=== PATIENT | male | born 1950 | race African-American/Black ===

== ENCOUNTER 2016-10-21 12:27 | Emergency (ER) | payer MEDICARE, OTHER ==
[2016-10-21] MEDS ORDERED: cefTRIAXone\\ROCEPHIN 1 GM VIAL ONE (13:22)
[2016-10-21] MEDS ORDERED: Lidocaine 1% 20 ML MDV ONE (13:22)
--- NOTE | 2016-10-21 13:22 | RAD ---
TWO VIEWS OF THE CHEST: DATE: 10/21/16. COMPARISON: 12/24/12. HISTORY: Cough and chills. FINDINGS: There is a questionable area of asymmetric increased density in the right lung base inferiorly. The re may be a correlate on the lateral view overlying the cardiac silhouette. No pneumothorax is seen . No lobar consolidation. Lungs appear hyperinflated suggesting air trapping. IMPRESSION: There is a focal opacity overlying the right lung base with a possible correlate on the lateral exam suggesting a right middle lobe location. This could be an inflammatory/infectious process. Underl shae mass lesion is a possibility as well. Short-term followup imaging following treatment advised to document resolution. If this opacity in the right base does not resolve in a short time frame, a chest CT would be advised to exclude an underlying mass lesion. CODE T POS: JANIE
--- NOTE | 2016-10-21 14:11 | ERRECORD ---
[facility] EMERGENCY RECORD HPI COUGH (ThuOct 22, 2016 02:39 AGRE) CHIEF COMPLAINT: Patient presents for evaluation of cough, non-productive. HISTORIAN: History provided by patient, COUGH FOR 3 WEEKS AND GETTING WORST. NO SOB. PAIN IN RIGHT SIDE OF BACK AND UPPER HIP SINCE FALLING AT HOME 2 MONTHS AGO . DENIES RECENT INJURIES. NO FEVER BUT HAVING CHILLS. IS A SMOKER. NO SICK CONTACTS. NOCHEST PAIN OR HX OF CARDIAC DISEASE, PE, DVT. LOCATION: No localizing symptoms. QUALITY: Denies wheezing. SEVERITY: Maximum severity of symptoms moderate, Currently symptoms are moderate. TIME COURSE: Gradual onset of symptoms, Symptoms are worsening. ASSOCIATED WITH: No associated chest pain, Associated with chills, No associated diarrhea, No associated diaphoresis, No associated dyspnea on exertion, No associated fever. EXACERBATED BY: Patient's condition exacerbated by nothing. RELIEVED BY: Patient's condition relieved by nothing. ROS (ThuOct 22, 2016 02:41 AGRE) CONSTITUTIONAL: Historian denies chills, denies fever, denies weakness. EYES: Historian denies eye redness, denies vision changes. ENT: Historian denies sore throat, denies stridor. CARDIOVASCULAR: Historian denies chest pain, denies diaphoresis. RESPIRATORY: Historian reports cough, denies shortness of breath, denies sputum, denies stridor, denies wheezing. GI: Historian denies abdominal pain, denies nausea, denies vomiting. MUSCULOSKELETAL: Historian reports back pain, denies neck pain. SKIN: Historian denies skin changes, denies skin lesions. NEUROLOGIC: Historian denies confusion, denies dizziness, denies focal weakness, denies headache. HEMO/LYMPHATIC: Normal hematologic/lymphatic system review, Historian denies petechiae. PSYCHIATRIC: Negative psychiatric review of systems, Historian denies anxiety. PAST MEDICAL HISTORY (12:36 MSPE) MEDICAL HISTORY: No past medical history, Flu vaccine not up to date, Tetanus not up to date, Pneumococcal vaccine not up to date. MALE SURGICAL HISTORY: Patient has no surgical history. PSYCHIATRIC HISTORY: No previous psychiatric history. SOCIAL HISTORY: Patient denies alcohol use, Patient denies drug use, Patient currently uses tobacco, smokes cigarettes, Patient smokes 1/2 packs per day. KNOWN ALLERGIES &a-1R&a+25V*p+0X*x9418Q*c202B*c15G*c2P*p-0X&a-25V&a+1R Name: Bertin Bach : 1950 M66 MedRec: [id number] AcctNum: [id number] Prepared: ThuOct 22, 2016 02:51 by Interface Page 1 of 4 pMD [facility] EMERGENCY RECORD NKDA (Unconfirmed) No Known Drug Allergies CURRENT MEDICATIONS (12:34 MSPE) None VITAL SIGNS VITAL SIGNS: BP: 144/60, Pulse: 74, Resp: 18, Temp: 98.1 (Oral), Pain: 5-6, O2 sat: 97 on Room Air, Time: 10/21/2016 12:34. (12:34 MSPE) BP: 131/55, Pulse: 70, Resp: 18, O2 sat: 97 on Room Air, Time: 10/21/2016 13:15. (13:15 MSPE) BP: 144/55, Pulse: 75, Resp: 18, O2 sat: 98 on Room Air, Time: 10/21/2016 13:55. (13:55 MSPE) PHYSICAL EXAM (ThuOct 22, 2016 02:42 AGRE) CONSTITUTIONAL: Vital signs reviewed, Patient afebrile, Respiratory rate normal, Patient appears non toxic, Patient appears pain free, Patient alert and oriented to person, place and time, NURSES NOTES REVIEWED. HEAD: Head exam included findings of head atraumatic, normocephalic. EYES: Eye exam included findings of eyelids normal to inspection, Extraocular muscles intact, Conjunctiva normal, Sclera normal. ENT: Ear exam normal, Nose exam normal, Mouth exam normal. NECK: Neck exam normal, Neck exam included findings of normal range of motion, no meningeal signs, no cervical adenopathy. RESPIRATORY CHEST: Respiratory exam included findings of no respiratory distress, Rales present, to the right middle lobe, to the right lower lobe, No rhonchi, Breath sounds not diminished, Chest exam included findings of chest movement symmetrical, Tenderness, moderate, to the right posterior chest, no crepitus, TENDERNESS TO PALPATION OVER THE RIGHT LOWER RIB CAGE AND FLANK WITHOUT WHICH REPRODUCES HIS PAIN. NO DEFORMITY OR BRUISING. CARDIOVASCULAR: Cardiovascular exam included findings of heart rate regular rate and rhythm, Heart sounds normal, normal S1, normal S2, no murmurs, no rub, no gallop. ABDOMEN MALE: Abdominal exam normal, Abdominal exam included findings of abdomen nontender, Bowel sounds normal, Liver normal, Spleen normal, no distension, no mass. BACK: Back exam included findings of normal inspection, Range of motion, limited by pain, Tenderness, paraspinal to the right lower. UPPER EXTREMITY: Upper extremity exam included findings of inspection normal, Range of motion normal. LOWER EXTREMITY: Lower extremity exam included findings of inspection normal, Range of motion normal. NEURO: Neuro exam normal, Neuro exam findings include patient oriented to person, place and time, Speech normal, Gait normal, &a-1R&a+25V*p+0X*u9868Z*c202B*c15G*c2P*p-0X&a-25V&a+1R Name: Bertin Bach : 1950 M66 MedRec: [id number] AcctNum: [id number] Prepared: ThuOct 22, 2016 02:51 by Interface Page 2 of 4 D [facility] EMERGENCY RECORD Memory normal, Cranial nerves intact, no focal motor deficits. SKIN: Skin exam normal, Skin exam included findings of skin warm, dry, and normal in color, no rash. LYMPHATIC: Lymphatic exam normal, Lymphatic exam included findings of cervical nodes normal. PSYCHIATRIC: Psychiatric exam normal, Normal affect. RADIOLOGYINTERPRETATION (ThuOct 22, 2016 02:46 AGRE) MECHANIC SOUND TECHNICIAN: Preliminary review of x-rays by, Radiologist, IMPRESSION: There is a focal opacity overlying the right lung base with a possible correlate on the lateral exam suggesting a right middle lobe location. This could be an inflammatory/infectious process. Underl shae mass lesion is a possibility as well. Short-term followup imaging following treatment advised to document resolution. If this opacity in the right base does not resolve in a short time frame, a chest CT would be advised to exclude an underlying mass lesion. MEDICATION ADMINISTRATION SUMMARY Drug Name: Rocephin IM Convenience, Dose Ordered: 1 g, Route: Intramuscular, Status: Given, Time: 13:35 10/21/2016, Detailed record available in Medication Service section. DOCTOR NOTES (ThuOct 22, 2016 02:46 AGRE) TEXT: DISCUSSED WITH PATIENT FINDINGS ON EXAM, RESULTS OF XRAYS, MANAGEMENT OF HIS BACK PAIN, ANTIBIOTICS FOR PNEUMONIA, POSSIBLE LUNG MASS NEEDING FURTHER EVALUATION ONCE THE PNEUMONIA CLEARS, STOP SMOKING, CLOSE FOLLOW UP. HE EXPRESSED UNDERSTANDING AND AGREEMENT WITH THIS PLAN. PATIENT STATUS: Patient has improved since arrival to emergency department. PATIENT PLAN: The patient will be discharged. DATA REVIEWED: Xray data reviewed. PROBLEM LIST No recorded problems DIAGNOSIS (13:23 AGRE) FINAL: PRIMARY: Pneumonia. PRESCRIPTION doxycycline hyclate oral: TABLET : 100 mg : ORAL : Quantity: 1 Unit: tab(s) Route: ORAL Schedule: 2 times a day (before meals) Dispense: 20 May substitute. Refills: No Refills . (13:24 AGRE) NOTES: No Refills. (13:24 AGRE) Robitussin DAC: SYRUP : 30 mg-10 mg-100 mg/5 mL : ORAL : &a-1R&a+25V*p+0X*r9998B*c202B*c15G*c2P*p-0X&a-25V&a+1R Name: Bertin Bach : 1950 M66 MedRec: [id number] AcctNum: [id number] Prepared: ThuOct 22, 2016 02:51 by Interface Page 3 of 4 pMD [facility] EMERGENCY RECORD Quantity: 10 Unit: mL Route: ORAL Schedule: every 6 hours PRN Dispense: 120 Unit: mL May substitute. Refills: No Refills . (13:24 AGRE) NOTES: PRN COUGH No Refills. (13:24 AGRE) Robaxin oral: TABLET : 500 mg : ORAL : Quantity: 2 Unit: tab(s) Route: ORAL Schedule: every 6 hours PRN Dispense: 40 May substitute. Refills: No Refills . (13:29 AGRE) NOTES: PRN BACK MUSCLE SPASMS No Refills. (13:29 AGRE) DISPOSITION PATIENT: Disposition Type: Discharge, Disposition: *Discharge Home, Condition: Improved. (13:23 AGRE) Patient left the department. (13:59 MSPE) Oliveira: AGRE=MD Davies Andrea MSPE=ELIANA Dewey, Denisha &a-1R&a+25V*p+0X*w5415D*c202B*c15G*c2P*p-0X&a-25V&a+1R Name: Bertin Bach : 1950 M66 MedRec: [id number] AcctNum: [id number] Prepared: ThuOct 22, 2016 02:51 by Interface Page 4 of 4 pMD MTDD
--- NOTE | 2016-10-21 14:15 | PICIS ---
[facility] EMERGENCY RECORD TRIAGE (12:33 MSPE) TRIAGE NOTES: pain to back and side & rt hip; onset one month ago "bad cold". (12:33 MSPE) PATIENT: NAME: Bertin Bach, AGE: 66, GENDER: male, : Thu1950, TIME OF GREET: ThuOct 21, 2016 12:27, PREFERRED LANGUAGE: Nauruan, ETHNICITY: Not or , ECODE BILLING MAP: [facility], SSN: [id number], Zip Code: [address], KG WEIGHT: 56.70, PHONE: , , , PERSON ID: [id number], PCP: none. (12:33 MSPE) COMPLAINT: CONGESTION,RIGHT SIDE AND BACK PAIN. (12:33 MSPE) ADMISSION: URGENCY: 4 Non Urgent, ADMISSION SOURCE: Home, TRANSPORT: CAR, BED: ER -03. (12:33 MSPE) TRIAGE SCREENING: Patient denies suicidal ideation, Patient denies presence of domestic violence. 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 (12:36 MSPE) PROVIDERS: TRIAGE NURSE: Denisha Dewey RN. (12:33 MSPE) VITAL SIGNS: BP 144/60, Pulse 74, Resp 18, Temp 98.1, (Oral), Pain 5-6, O2 Sat 97, on Room Air, Time 10/21/2016 12:34. (12:34 MSPE) PREVIOUS VISIT ALLERGIES: NKDA. (12:33 MSPE) NKDA. (12:36 MSPE) KNOWN ALLERGIES NKDA (Unconfirmed) No Known Drug Allergies CURRENT MEDICATIONS (12:34 MSPE) None VITAL SIGNS VITAL SIGNS: BP: 144/60, Pulse: 74, Resp: 18, Temp: 98.1 (Oral), Pain: 5-6, O2 sat: 97 on Room Air, Time: 10/21/2016 12:34. (12:34 MSPE) BP: 131/55, Pulse: 70, Resp: 18, O2 sat: 97 on Room Air, Time: 10/21/2016 13:15. (13:15 MSPE) BP: 144/55, Pulse: 75, Resp: 18, O2 sat: 98 on Room Air, Time: 10/21/2016 13:55. (13:55 MSPE) NURSING ASSESSMENT: BACK (12:39 MSPE) PAIN: c/o pain to right lower back and right hip for past month. 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 BACK: Notes: no deformities noted to back. NURSING ASSESSMENT: RESPIRATORY /CHEST (12:37 MSPE) CONSTITUTIONAL: Patient arrives ambulatory, Gait steady, History obtained from patient, Patient appears comfortable, Patient cooperative, Patient alert, Oriented to person, place and time, Skin &a-1R&a+25V*p+0X*l7169V*c202B*c15G*c2P*p-0X&a-25V&a+1R Name: Bertin Bach : 1950 M66 MedRec: [id number] AcctNum: [id number] Prepared: ThuOct 22, 2016 02:57 by Interface Page [address] [facility] EMERGENCY RECORD warm, Skin dry. RESPIRATORY/CHEST: Associated with cough, productive of, yellow sputum, Associated with fever, subjective fever; hasn't checked at home, Notes: also reports having runny nose. NURSING PROCEDURE: DISCHARGE NOTE (13:59 MSPE) DISCHARGE: Patient discharged to home, ambulating without assistance, Summary of Care printed/ provided, Discharge instructions given to patient, Simple or moderate discharge teaching performed, Prescriptions given and instructions on side effects given, Above person(s) verbalized understanding of discharge instructions and follow-up care, Patient treated and evaluated by physician. BELONGINGS: Belongings remain with patient. NOTES: Notes: No adverse reaction noted to IM med. NURSING PROCEDURE: TRANSPORT TO TESTS (12:48 MSPE) TRANSPORT TO TESTS: Patient transported to x-ray, via wheelchair, Accompanied by x-ray cadd technician. ORDER DETAILS Order Name: XR Chest Pa & Lat STANDARD, Status: Active, Time: 12:38 10/21/2016, User: JOSE, - Ordered for: MD Samson, Ifeanyi, - Entered by: ELIANA Bran, Malgorzata Sandoval Oct 21, 2016 12:38, - Quantity: 1. MEDICATION ADMINISTRATION SUMMARY Drug Name: Rocephin IM Convenience, Dose Ordered: 1 g, Route: Intramuscular, Status: Given, Time: 13:35 10/21/2016, Detailed record available in Medication Service section. MEDICATION SERVICE (13:35 AGRE) Rocephin IM Convenience: Order: Rocephin IM Convenience (ceftriaxone sodium/lidocaine HCl) - Dose: 1 g : Intramuscular Ordered by: fIeanyi Davies MD Entered by: Ifeanyi Davies MD [facility] Oct 21, 2016 13:11 , Acknowledged by: Denisha Dewey RN Oct 21, 2016 13:21 Documented as given by: Denisha Dewey RN [facility] Oct 21, 2016 13:35 Patient, Medication, Dose, Route and Time verified prior to administration. IM antibiotic, Amount given: 1 gram, Medication administered to right thigh, Patient appears Awake and alert- acceptable, Correct patient, time, route, dose and medication confirmed prior to administration, Patient advised of actions and side-effects prior to administration, Allergies confirmed and medications reviewed prior to administration, Patient in position of comfort, Side rails up, Cart in lowest &a-1R&a+25V*p+0X*f6164T*c202B*c15G*c2P*p-0X&a-25V&a+1R Name: Bertin Bach : 1950 M66 MedRec: [id number] AcctNum: [id number] Prepared: ThuOct 22, 2016 02:57 by Interface Page [address] [facility] EMERGENCY RECORD position. HPI COUGH (ThuOct 22, 2016 02:39 AGRE) CHIEF COMPLAINT: Patient presents for evaluation of cough, non-productive. HISTORIAN: History provided by patient, COUGH FOR 3 WEEKS AND GETTING WORST. NO SOB. PAIN IN RIGHT SIDE OF BACK AND UPPER HIP SINCE FALLING AT HOME 2 MONTHS AGO . DENIES RECENT INJURIES. NO FEVER BUT HAVING CHILLS. IS A SMOKER. NO SICK CONTACTS. NOCHEST PAIN OR HX OF CARDIAC DISEASE, PE, DVT. LOCATION: No localizing symptoms. QUALITY: Denies wheezing. SEVERITY: Maximum severity of symptoms moderate, Currently symptoms are moderate. TIME COURSE: Gradual onset of symptoms, Symptoms are worsening. ASSOCIATED WITH: No associated chest pain, Associated with chills, No associated diarrhea, No associated diaphoresis, No associated dyspnea on exertion, No associated fever. EXACERBATED BY: Patient's condition exacerbated by nothing. RELIEVED BY: Patient's condition relieved by nothing. ROS (ThuOct 22, 2016 02:41 AGRE) CONSTITUTIONAL: Historian denies chills, denies fever, denies weakness. EYES: Historian denies eye redness, denies vision changes. ENT: Historian denies sore throat, denies stridor. CARDIOVASCULAR: Historian denies chest pain, denies diaphoresis. RESPIRATORY: Historian reports cough, denies shortness of breath, denies sputum, denies stridor, denies wheezing. GI: Historian denies abdominal pain, denies nausea, denies vomiting. MUSCULOSKELETAL: Historian reports back pain, denies neck pain. SKIN: Historian denies skin changes, denies skin lesions. NEUROLOGIC: Historian denies confusion, denies dizziness, denies focal weakness, denies headache. HEMO/LYMPHATIC: Normal hematologic/lymphatic system review, Historian denies petechiae. PSYCHIATRIC: Negative psychiatric review of systems, Historian denies anxiety. PAST MEDICAL HISTORY (12:36 MSPE) MEDICAL HISTORY: No past medical history, Flu vaccine not up to date, Tetanus not up to date, Pneumococcal vaccine not up to date. MALE SURGICAL HISTORY: Patient has no surgical history. PSYCHIATRIC HISTORY: No previous psychiatric history. SOCIAL HISTORY: Patient denies alcohol use, Patient denies drug use, Patient currently uses tobacco, smokes cigarettes, Patient smokes 1/2 packs per day. &a-1R&a+25V*p+0X*p9647E*c202B*c15G*c2P*p-0X&a-25V&a+1R Name: Bertin Bach : 1950 M66 MedRec: [id number] AcctNum: [id number] Prepared: ThuOct 22, 2016 02:57 by Interface Page [address] [facility] EMERGENCY RECORD PHYSICAL EXAM (ThuOct 22, 2016 02:42 AGRE) CONSTITUTIONAL: Vital signs reviewed, Patient afebrile, Respiratory rate normal, Patient appears non toxic, Patient appears pain free, Patient alert and oriented to person, place and time, NURSES NOTES REVIEWED. HEAD: Head exam included findings of head atraumatic, normocephalic. EYES: Eye exam included findings of eyelids normal to inspection, Extraocular muscles intact, Conjunctiva normal, Sclera normal. ENT: Ear exam normal, Nose exam normal, Mouth exam normal. NECK: Neck exam normal, Neck exam included findings of normal range of motion, no meningeal signs, no cervical adenopathy. RESPIRATORY CHEST: Respiratory exam included findings of no respiratory distress, Rales present, to the right middle lobe, to the right lower lobe, No rhonchi, Breath sounds not diminished, Chest exam included findings of chest movement symmetrical, Tenderness, moderate, to the right posterior chest, no crepitus, TENDERNESS TO PALPATION OVER THE RIGHT LOWER RIB CAGE AND FLANK WITHOUT WHICH REPRODUCES HIS PAIN. NO DEFORMITY OR BRUISING. CARDIOVASCULAR: Cardiovascular exam included findings of heart rate regular rate and rhythm, Heart sounds normal, normal S1, normal S2, no murmurs, no rub, no gallop. ABDOMEN MALE: Abdominal exam normal, Abdominal exam included findings of abdomen nontender, Bowel sounds normal, Liver normal, Spleen normal, no distension, no mass. BACK: Back exam included findings of normal inspection, Range of motion, limited by pain, Tenderness, paraspinal to the right lower. UPPER EXTREMITY: Upper extremity exam included findings of inspection normal, Range of motion normal. LOWER EXTREMITY: Lower extremity exam included findings of inspection normal, Range of motion normal. NEURO: Neuro exam normal, Neuro exam findings include patient oriented to person, place and time, Speech normal, Gait normal, Memory normal, Cranial nerves intact, no focal motor deficits. SKIN: Skin exam normal, Skin exam included findings of skin warm, dry, and normal in color, no rash. LYMPHATIC: Lymphatic exam normal, Lymphatic exam included findings of cervical nodes normal. PSYCHIATRIC: Psychiatric exam normal, Normal affect. EVENTS TRANSFER: Triage to Emergency Emergency Room -03. (ThuOct 21, 2016 12:33 MSPE) Removed from Emergency Emergency Room -03. (13:59 MSPE) RADIOLOGYINTERPRETATION (ThuOct 22, 2016 02:46 AGRE) PICK UP ATTENDANT: Preliminary review of x-rays by, Radiologist, &a-1R&a+25V*p+0X*r6795L*c202B*c15G*c2P*p-0X&a-25V&a+1R Name: Bertin Bach : 1950 [address] [place] [address]: [id number] AcctNum: [id number] Prepared: ThuOct 22, 2016 02:57 by Interface Page [address] [facility] EMERGENCY RECORD IMPRESSION: There is a focal opacity overlying the right lung base with a possible correlate on the lateral exam suggesting a right middle lobe location. This could be an inflammatory/infectious process. Underl shae mass lesion is a possibility as well. Short-term followup imaging following treatment advised to document resolution. If this opacity in the right base does not resolve in a short time frame, a chest CT would be advised to exclude an underlying mass lesion. O2SAT INTERPRETATION (ThuOct 22, 2016 02:45 AGRE) O2SAT: Continuous pulse oximetry, Oxygen saturation 97%, on room air, Oxygen saturation interpretation: Normal, No intervention required. DOCTOR NOTES (ThuOct 22, 2016 02:46 AGRE) TEXT: DISCUSSED WITH PATIENT FINDINGS ON EXAM, RESULTS OF XRAYS, MANAGEMENT OF HIS BACK PAIN, ANTIBIOTICS FOR PNEUMONIA, POSSIBLE LUNG MASS NEEDING FURTHER EVALUATION ONCE THE PNEUMONIA CLEARS, STOP SMOKING, CLOSE FOLLOW UP. HE EXPRESSED UNDERSTANDING AND AGREEMENT WITH THIS PLAN. PATIENT STATUS: Patient has improved since arrival to emergency department. PATIENT PLAN: The patient will be discharged. DATA REVIEWED: Xray data reviewed. PROBLEM LIST No recorded problems DIAGNOSIS (13:23 AGRE) FINAL: PRIMARY: Pneumonia. DISPOSITION PATIENT: Disposition Type: Discharge, Disposition: *Discharge Home, Condition: Improved. (13:23 AGRE) Patient left the department. (13:59 MSPE) INSTRUCTION (13:30 AGRE) DISCHARGE: LOW BACK PAIN INJURY, PNEUMONIA (ADULT). FOLLOWUP: [facility], /[facility], [address] [place] [id number], . SPECIAL: START YOUR ANTIBIOTICS TODAY. SEE A PHYSICIAN FOR RECHECK IN 10 DAYS. SEE A PHYSICIAN SOONER IF WORSENING OR IF NEW SYMPTOMS DEVELOP. MOTRIN 600 MG EVERY 6 HOURS FOR PAIN YOUR CHEST XRAY INDICATES A POSSIBLE LUNG MASS WHICH MAY BE CANCER WE DISCUSSED. YOU MUST SEE A PHYSICIAN FOR RECHECK AND FURTHER EVALUATION IN 2 - 3 WEEKS. PRESCRIPTION &a-1R&a+25V*p+0X*d7447F*c202B*c15G*c2P*p-0X&a-25V&a+1R Name: Bertin Bach : 1950 M66 MedRec: [id number] AcctNum: [id number] Prepared: ThuOct 22, 2016 02:57 by Interface Page [address] [facility] EMERGENCY RECORD doxycycline hyclate oral: TABLET : 100 mg : ORAL : Quantity: 1 Unit: tab(s) Route: ORAL Schedule: 2 times a day (before meals) Dispense: 20 May substitute. Refills: No Refills . (13:24 AGRE) NOTES: No Refills. (13:24 AGRE) Robitussin DAC: SYRUP : 30 mg-10 mg-100 mg/5 mL : ORAL : Quantity: 10 Unit: mL Route: ORAL Schedule: every 6 hours PRN Dispense: 120 Unit: mL May substitute. Refills: No Refills . (13:24 AGRE) NOTES: PRN COUGH No Refills. (13:24 AGRE) Robaxin oral: TABLET : 500 mg : ORAL : Quantity: 2 Unit: tab(s) Route: ORAL Schedule: every 6 hours PRN Dispense: 40 May substitute. Refills: No Refills . (13:29 AGRE) NOTES: PRN BACK MUSCLE SPASMS No Refills. (13:29 AGRE) IMAGING *SUPPLY CHARGE SHEET: Image captured from scanner. (13:39 MSPE) *DISCHARGE INSTRUCTIONS RECEIPT: Image captured from scanner. (14:02 MSPE) ADMIN (ThuOct 22, 2016 02:49 AGRE) DIGITAL SIGNATURE: MD Davies Andrea. Oliveira: AGRE=MD Davies Andrea MSPE=ELIANA Dewey, Denisha &a-1R&a+25V*p+0X*f8540E*c202B*c15G*c2P*p-0X&a-25V&a+1R Name: Bertin Bach : 1950 M66 MedRec: [id number] AcctNum: [id number] Prepared: ThuOct 22, 2016 02:57 by Interface Page 6 of 6 pMD MTDD
== END 2016-10-21 13:59 | disposition home or self-care (01) ==
LOC: NAV ERS 12:27
DX: J18.9 Pneumonia, unspecified organism (principal); F17.210 Nicotine dependence, cigarettes, uncomplicated
CPT/HCPCS: 71020; 96372; J0696; J2001

== ENCOUNTER 2016-12-20 18:44 | Emergency (ER) | payer MEDICARE, OTHER ==
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
== END 2016-12-20 19:31 ==
LOC: NAV ERS 18:44
DX: S09.90XA Unspecified injury of head, initial encounter (principal); F10.129 Alcohol abuse with intoxication, unspecified; F17.210 Nicotine dependence, cigarettes, uncomplicated; V89.2XXA Person injured in unspecified motor-vehicle accident, traffic, initial encounter
CPT/HCPCS: 70450; 72125

== ENCOUNTER 2021-03-20 09:55 | Emergency (ER) | payer MEDICARE, OTHER ==
[2021-03-20 10:19] LABS: #Eosinphils 0.4 thou/uL (0.0-0.7); #Lymphocytes 2.1 thou/uL (1.20-3.40); #Monocytes 1.2 thou/uL (0.11-0.59); #Neutrophils 7.2 thou/uL (1.40-6.50); %Basophils 0.4 % (0.0-1.0); %Eosinophils 3.9 % (0.0-10.0); %Lymphocytes 19.4 % (21.0-51.0); %Monocytes 10.6 % (0.0-10.0); %Neutrophils 65.8 % (42.0-75.0); Hemoglobin 14.9 g/dL (14.0-18.0); Mean Corpuscular HGB CONC 30.9 g/dL (32.0-36.0); Mean Corpuscular Hemoglobin 30.9 pg (27.0-31.0); Mean Platelet Volume 6.3 fL (7.4-10.4); Platelet Count 359 thou/uL (130-400); RBC Distribution Width 12.1 % (11.5-14.5); Red Blood Cell (RBC) Count 4.84 mill/uL (4.70-6.10); White Blood Cell (WBC) Count 10.9 thou/uL (4.8-10.8)
[2021-03-20 10:36] LABS: ALT (SGPT) 15 U/L (8-55); AST (SGOT) 21 U/L (5-34); Albumin 3.8 g/dL (3.4-4.8); Alkaline Phosphatase 96 U/L (40-110); Anion Gap 13 mmol/L (10-20); BUN (Urea Nitrogen) 10 mg/dL (8.4-25.7); Bilirubin, Total 0.6 mg/dL (0.2-1.2); Calc. Creatinine Clearance 0 mL/min (70-130); Carbon Dioxide 29 mmol/L (23-31); Chloride 100 mmol/L (98-107); Globulin 3.8 g/dL (2.4-3.5); Glucose 147 mg/dL (83-110); Potassium 3.9 mmol/L (3.5-5.1); Protein, Total 7.6 g/dL (5.8-8.1); Sodium 138 mmol/L (136-145)
[2021-03-20 13:28] LABS: SARS-CoV-2 NAA Rapid Test Not Detected (NotDetected)
== END 2021-03-20 12:32 | disposition short-term general hospital (02) ==
LOC: NAV ERS 09:55
DX: J90 Pleural effusion, not elsewhere classified (principal); R09.02 Hypoxemia; Z87.891 Personal history of nicotine dependence
CPT/HCPCS: 0240U; 71045; 80053; 85025; 93005

== ENCOUNTER 2021-12-24 13:39 | Emergency (ER) | payer OTHER | END 2021-12-24 14:30 | disposition home or self-care (01) | LOC: NAV ERS 13:39 | DX: R21 Rash and other nonspecific skin eruption (principal); J44.9 Chronic obstructive pulmonary disease, unspecified; Z87.891 Personal history of nicotine dependence; Z85.118 Personal history of other malignant neoplasm of bronchus and lung | CPT/HCPCS: 87070; 87205; 99283 ==